=== PATIENT | female | born 1955 | race Caucasian/White ===

== ENCOUNTER 2021-10-07 06:10 | Emergency (ER) | payer MEDICARE, SELFPAY ==
[2021-10-07 06:19] VITALS: BP 120/63; PULSE 69; RESP 18; TEMP 36.1; O2SAT 100
[2021-10-07 07:15] LABS: Add Manual Diff / Slide Review NO; Basophils Absolute Auto 0 /uL (0-100); Basophils Percent Auto 0.3 % (0-2); Eosinophils Absolute Auto 300 /uL (0-450); Eosinophils Percent Auto 2.9 % (2-4); Hematocrit 39.8 % (36-46); Hemoglobin 13.4 g/dL (12.0-16.0); Lymphocytes Absolute Auto 700 /uL (1100-4500); Lymphocytes Percent Auto 8.2 % (25-40); Mean Corpuscular HGB Conc 33.7 % (30-36); Mean Corpuscular Hemoglobin 28.6 PG (26-34); Mean Corpuscular Volume 84.8 fL (80-100); Monocytes Absolute Auto 500 /uL (0-900); Monocytes Percent Auto 5.9 % (3-14); Neutrophils Absolute Auto 7200 /uL (1500-7000); Neutrophils Percent Auto 82.7 % (50-75); Platelet Count 230 X10^3/uL (150-400); Red Blood Cell Count 4.69 X10^6/uL (4.0-5.2); Red Cell Distribution Width 13.4 % (11.6-14.8); White Blood Cell Count 8.7 X10^3/uL (4.5-11.0)
[2021-10-07 07:22] LABS: Alanine Aminotransferase 22 IU/L (<35); Albumin 4.3 g/dL (3.5-5.0); Albumin Globulin Ratio 1.5 (1.0-2.8); Alkaline Phosphatase 96 U/L (38-126); Aspartate Aminotransferase 51 IU/L (14-36); Bilirubin Total 0.8 mg/dL (0.2-1.3); Blood Urea Nitrogen 18 mg/dL (7-17); Calcium 9.3 mg/dL (8.4-10.2); Carbon Dioxide 24 mmol/L (22-32); Chloride 107 mmol/L (98-107); Estimated Glomerular Filt Rate > 60 mL/min (>60); Globulin 2.8 g/dL (1.7-4.1); Glucose 132 mg/dL (80-110); Lipase 35 U/L (23-300); Potassium 3.7 mmol/L (3.4-5.1); Sodium 140 mmol/L (137-145); Total Protein 7.1 g/dL (6.3-8.2)
[2021-10-07 07:26] LABS: HEMOLYSIS 56 (0-50)
--- NOTE | 2021-10-07 07:33 | DI.CT.S_ITS ---
PROCEDURE: CT ABDOMEN PELVIS WO CON INDICATIONS: RUQ and R flank abd pain TECHNIQUE: Axial sections were acquired from the lung bases to the pubic symphysis. Coronal and sagittal reformats were performed. For radiation dose reduction, the following was used: automated exposure control, adjustment of mA and/or kV according to patient size. COMPARISON: None. FINDINGS: Image quality: Excellent. Lung bases: Unremarkable. Heart: No significant findings. URINARY: Right Kidney: No stones. Trace renal pelviectasis. There is perinephric stranding. A 1.8 cm diameter exophytic nodule is seen in the anterior cortex demonstrating CT density 26.5 HU. Right Ureter: No hydroureter. Left Kidney: No stones or hydronephrosis. There is perinephric stranding. Left Ureter: No hydroureter. Bladder: A couple of tiny 2 mm calcific foci in in the left side of the pelvis most likely outside of the bladder or on the bladder wall. Less likely, One of the calcifications could be in the gravity dependent bladder lumen. Normal wall thickness. ABDOMEN: Liver: Normal size. Tiny calcified foci in liver are most likely old granulomas. Gallbladder: Surgically removed. Biliary ducts: Unremarkable. Pancreas: Unremarkable. Spleen: Unremarkable. Adrenal Glands: Unremarkable. Stomach and Bowel: Stomach, small bowel loops, and colon are unremarkable. Normal appendix. Peritoneum: No abnormal intraperitoneal fluid. No free air. Ventral Wall: Tiny fat containing umbilical hernia. Abdominal Nodes: No enlarged retroperitoneal or mesenteric lymph nodes. Vessels: Aorta and inferior vena cava are normal in size. PELVIS: Pelvic Organs: Unremarkable. Pelvic Nodes: Unremarkable. Miscellaneous: No inguinal hernias are seen. Bones: Degenerative disc and facet disease. IMPRESSION: 1. Trace right renal pelviectasis and bilateral nonspecific perinephric stranding. No kidney stones or ureteral stones. A couple of calcific densities are noted in the left side of the pelvis, most likely outside the bladder or on the posterior wall of the bladder although 1 of the calcifications could be within the gravity dependent bladder lumen. 2. A 1.8 cm exophytic nodule in the superior pole of the right kidney, not meeting the criteria for a simple cyst. Recommend follow-up ultrasound to confirm cystic nature and rule out a solid mass. 3. Cholecystectomy. The result was discussed with Dr. Landeros. Dictated by: Elieser Key M.D. on 10/07/2021 at 8:02 Approved by: Elieser Key M.D. on 10/07/2021 at 8:17
--- NOTE | 2021-10-07 07:34 | ED.GENADULT ---
HPI - General Adult General Chief complaint: Abdominal Pain Stated complaint: covid +, pain under rib cage right side Time Seen by Provider: 10/07/21 06:57 Source: patient Mode of arrival: Ambulatory History of Present Illness HPI narrative: 66-year-old female who is here for evaluation of right-sided abdominal pain which she specifically states is in her right upper quadrant. Patient states that it started after woke her from sleep at about 0400 hours this morning. She went to bed last night feeling body aches but 9 days ago she was diagnosed with COVID so this is not new for her. She did have some diarrhea yesterday which again is not new for her. She has not had a bowel movement since the onset of the discomfort. She has urinated and this does not change the pain. Not worse with taking a deep breath. Is somewhat worse with touching. She has had her gallbladder removed. She states that the pain does seem to come and go but never completely resolves. Is nauseous. Related Data Previous Rx's Medication Instructions Recorded cyclobenzaprine 10 mg tablet 10 mg PO TID PRN muscle spasm #30 07/01/18 tabs ondansetron 4 mg disintegrating 4 mg PO Q6H PRN nausea and 10/07/21 tablet vomiting #12 tabs Allergies Allergy/AdvReac Type Severity Reaction Status Date / Time No Known Drug Allergies Allergy Verified 07/01/18 12:17 Review of Systems Review of Systems ROS Unobtainable: All systems reviewed & are unremarkable except as noted in HPI and below Patient History Medical History Healthy adult Social History Smoking Status: Never smoker Smoking Status: Never smoker alcohol intake frequency: holidays/special occasions only Substance Use Type: does not use Exam Initial Vital Signs Initial Vital Signs: Vital Signs Temperature 97 F L 10/07/21 06:19 Pulse Rate 69 10/07/21 06:19 Respiratory Rate 18 10/07/21 06:19 Blood Pressure 120/63 10/07/21 06:19 Pulse Oximetry 100 10/07/21 06:19 Oxygen Delivery Method 10/07/21 06:19 Const General: cooperative and comfortable HENMT Head: normal to inspection Resp Effort & Inspection: normal respiratory effort Auscultation: clear to auscultation bilaterally Cardio Rate: regular rate Rhythm: regular rhythm GI Inspection: normal to inspection Palpation: soft and tender (Right upper quadrant) Back/Spine/Pelvis Back: CVA tenderness right Neuro General: patient alert and moves all extremities Extrem General: normal to inspection and capillary refill normal Psych Appearance: grossly normal and well kempt Course Orders Ordered: ED Orders 10/07/21 06:30 Complete Blood Count AUTO DIFF Stat Comprehensive Metabolic Panel Stat Lipase Stat EKG-12 Lead Stat 10/07/21 07:33 CT abdomen pelvis wo con Stat Discontinued Medications Ondansetron HCl (Ondansetron 4 Mg/2 Ml Inj) 4 mg IV NOW ONE Stop: 10/07/21 07:35 Last Admin: 10/07/21 07:59 Dose: Not Given Documented By: ALLEY Ondansetron HCl (Ondansetron 4 Mg Odt) 4 mg SL NOW ONE Stop: 10/07/21 08:00 Last Admin: 10/07/21 08:03 Dose: 4 mg Documented By: ALLEY Vital Signs Vital signs: Vital Signs - 8 hr 10/07/21 06:19 10/07/21 07:43 10/07/21 07:43 Temperature 97 F L Pulse Rate 69 74 Respiratory Rate 18 Blood Pressure 120/63 127/68 Pulse Oximetry 100 95 Oxygen Delivery Method Room Air 10/07/21 08:01 10/07/21 08:01 10/07/21 08:30 Temperature Pulse Rate Respiratory Rate Blood Pressure 131/73 133/66 Pulse Oximetry 95 Oxygen Delivery Method 10/07/21 08:30 Temperature Pulse Rate 77 Respiratory Rate Blood Pressure Pulse Oximetry 96 Oxygen Delivery Method Medical Decision Making Lab Data Lab results reviewed: Yes I reviewed the patient's lab results. Result diagrams: 10/07/21 06:30 10/07/21 06:30 Labs: Lab Results 10/07/21 10/07/21 Range/Units 06:30 06:30 WBC 8.7 (4.5-11.0) X10^3/uL RBC 4.69 (4.0-5.2) X10^6/uL Hgb 13.4 (12.0-16.0) g/dL Hct 39.8 (36-46) % MCV 84.8 (80-100) fL MCH 28.6 (26-34) PG MCHC 33.7 (30-36) % RDW 13.4 (11.6-14.8) % Plt Count 230 (150-400) X10^3/uL Neut % (Auto) 82.7 H (50-75) % Lymph % (Auto) 8.2 L (25-40) % [place] % (Auto) 5.9 (3-14) % Eos % (Auto) 2.9 (2-4) % Baso % (Auto) 0.3 (0-2) % Neut # (Auto) 7200 H (9700-4382) /uL Lymph # (Auto) 700 L (2016-2098) /uL [place] # (Auto) 500 (0-900) /uL Eos # (Auto) 300 (0-450) /uL Baso # (Auto) 0 (0-100) /uL Sodium 140 (137-145) mmol/L Potassium 3.7 (3.4-5.1) mmol/L Chloride 107 (98-107) mmol/L Carbon Dioxide 24 (22-32) mmol/L BUN 18 H (7-17) mg/dL Creatinine 0.75 (0.52-1.04) mg/dL Estimated GFR > 60 (>60) mL/min BUN/Creatinine Ratio 24.0 H (6-22) Glucose 132 H (80-110) mg/dL Calcium 9.3 (8.4-10.2) mg/dL Total Bilirubin 0.8 (0.2-1.3) mg/dL AST 51 H (14-36) IU/L ALT 22 (<35) IU/L Alkaline Phosphatase 96 (38-126) U/L Total Protein 7.1 (6.3-8.2) g/dL Albumin 4.3 (3.5-5.0) g/dL Globulin 2.8 (1.7-4.1) g/dL Albumin/Globulin Ratio 1.5 (1.0-2.8) Lipase 35 (23-300) U/L Urine Dip Bedside Urine Glucose Negative Bedside Urine Bilirubin - Negative Bedside Urine Ketone - Negative Urine Specific Zimmerman 1.025 Bedside Urine Occult Blood - Negative Bedside Urine pH 6.0 Bedside Urine Protein - Negative Bedside Urine Urobilinogen - Negative Bedside Urine Nitrite - Negative Bedside Urine Leukocytes - Negative Esterase Point of care testing: Urine Dip Bedside Urine Glucose Negative Bedside Urine Bilirubin - Negative Bedside Urine Ketone - Negative Urine Specific Zimmerman 1.025 Bedside Urine Occult Blood - Negative Bedside Urine pH 6.0 Bedside Urine Protein - Negative Bedside Urine Urobilinogen - Negative Bedside Urine Nitrite - Negative Bedside Urine Leukocytes - Negative Esterase Imaging Data CT scan - abdomen/pelvis: Radiologist's Impression: [address] [address] [address] Scan Report Signed Patient: Cas Colon MR#: [id number] : 1955 Acct:[id number] Age/Sex: 66 / F Date of Service: 10/07/21 Loc: ED Accession Number: [id number] ?? Procedure: CT abdomen pelvis wo con Ordering Provider: Anant Landeros D.O. PROCEDURE:? CT ABDOMEN PELVIS WO CON ? INDICATIONS:? RUQ and R flank abd pain ? TECHNIQUE:? Axial sections were acquired from the lung bases to the pubic symphysis.? Coronal and sagittal reformats were performed.? For radiation dose reduction, the following was used: ?automated exposure control, adjustment of mA and/or kV according to patient size.? ? COMPARISON:? None. ? FINDINGS:? Image quality:? Excellent.? ? Lung bases:? Unremarkable.? ? Heart:? No significant findings. ? URINARY: Right Kidney: ? No stones.? Trace renal pelviectasis.? There is perinephric stranding.? A 1.8 cm diameter exophytic nodule is seen in the anterior cortex demonstrating CT density 26.5 HU. Right Ureter:? No hydroureter.? ? Left Kidney: ? No stones or hydronephrosis.? There is perinephric stranding. Left Ureter:? No hydroureter.? ? Bladder:? A couple of tiny 2 mm calcific foci in in the left side of the pelvis most likely outside of the bladder or on the bladder wall.? Less likely, One of the calcifications could be in the gravity dependent bladder lumen.? Normal wall thickness. ? ? ? ABDOMEN: Liver:? Normal size.? Tiny calcified foci in liver are most likely old granulomas.? ? Gallbladder:? Surgically removed.? ? Biliary ducts:? Unremarkable.? ? Pancreas:? Unremarkable.? ? Spleen:? Unremarkable.? ? Adrenal Glands:? Unremarkable.? ? ? Stomach and Bowel:? Stomach, small bowel loops, and colon are unremarkable.? Normal appendix. Peritoneum:? No abnormal intraperitoneal fluid.? No free air.? ? Ventral Wall: ? Tiny fat containing umbilical hernia.? Abdominal Nodes:? No enlarged retroperitoneal or mesenteric lymph nodes.? Vessels:? Aorta and inferior vena cava are normal in size.? ? PELVIS: Pelvic Organs:? Unremarkable.? ? Pelvic Nodes: Unremarkable. Miscellaneous: No inguinal hernias are seen. ? ? ? Bones:? Degenerative disc and facet disease. ? IMPRESSION:? ? 1. Trace right renal pelviectasis and bilateral nonspecific perinephric stranding.? No kidney stones or ureteral stones. A couple of calcific densities are noted in the left side of the pelvis, most likely outside the bladder or on the posterior wall of the bladder although 1 of the calcifications could be within the gravity dependent bladder lumen. ? 2. A 1.8 cm exophytic nodule in the superior pole of the right kidney, not meeting the criteria for a simple cyst.? Recommend follow-up ultrasound to confirm cystic nature and rule out a solid mass. ? 3. Cholecystectomy.? ? ? The result was discussed with Dr. Landeros. ? Dictated by: Elieser Key M.D. on 10/07/2021 at 8:02 ? ? Approved by: Elieser Key M.D. on 10/07/2021 at 8:17?? ECG Data Attestation: I personally reviewed and interpreted this ECG as follows: Interpretation: Sinus rhythm Ventricular rate 80 Normal axis Normal QRS Normal QTC No ST T wave changes MDM Narrative Medical decision making narrative: Patient states she did feel better after the nausea medication that was provided here in the ER. Unsure whether it was that treatment or time that made her symptoms improved. The CT scan does not show any signs of acute pathology. There is no does not appear to be any ureteral stone. Her urine is not consistent with a urinary tract infection and she has no UTI like symptoms I feel that pyelonephritis is unlikely. There is no signs of any bowel obstruction. She has no chest pain. No fevers. No lung symptoms. She has no rash over the skin that would make me concern for zoster. Unsure the exact etiology however does not appear to be infectious/surgical. Will hold on further workup for now. Will send home with prescription for nausea medication. She was given return precautions. She expressed understanding a. Discharge Plan Departure Patient Disposition: Home Clinical Impression: Nodule of kidney, Abdominal pain Instructions: DI for Abdominal Pain-Adult Activity Restrictions/Additional Instructions: Do recommend that you take all medications as directed. Contact your primary doctor for a follow-up. Return to the emergency department for any new or worsening symptoms. A prescription for nausea medication was sent to [facility] per your request. Prescriptions: New ondansetron 4 mg tablet,disintegrating 4 mg PO Q6H PRN (Reason: nausea and vomiting) Qty: 12 0RF No Action cyclobenzaprine 10 mg tablet 10 mg PO TID PRN (Reason: muscle spasm) Qty: 30 0RF
[2021-10-07 07:43] VITALS: BP 127/68; PULSE 74; O2SAT 95
[2021-10-07 08:01] VITALS: BP 131/73; O2SAT 95
[2021-10-07] MEDS: ONDANSETRON 4 MG ODT SL (08:03)
[2021-10-07 08:30] VITALS: BP 133/66; PULSE 77; O2SAT 96
--- NOTE | 2021-10-07 08:33 | PC.NURSE ---
Ok to drink per dr. simon. Given water and encouraged to let us know when she can provide UA.
[2021-10-07 09:53] VITALS: BP 135/82; PULSE 68; RESP 18; O2SAT 98
== END 2021-10-07 09:55 | disposition home or self-care (01) ==
PROVIDERS: Emergency Medicine; Emergency Provider Emergency Medicine
DX: N28.89 Other specified disorders of kidney and ureter (principal); R10.11 Right upper quadrant pain; R11.0 Nausea; U07.1 COVID-19
CPT/HCPCS: 74176; 80053; 81003; 83690; 85025; 93005; 99284